=== PATIENT | male | born 1935 | race Caucasian/White ===

== ENCOUNTER 2016-09-23 13:59 | Emergency (ER) | payer MEDICARE, BC ==
[2016-09-23 14:24] VITALS: BP 118/69
--- NOTE | 2016-09-23 14:38 | ERNOTE ---
Chest Pain/Cardiac HPI Date of Service: 09/23/16 Chief Complaint: Chest Pain Time Seen by Provider: 09/23/16 14:24 Source: patient Exam Limitations: no limitations Immunizations: IMMUNIZATION HX Immunizations Up to Date Yes History of Influenza Vaccine Yes Hx Pneumococcal Vaccination Yes Allergies/Adverse Reactions: Allergies No Known Allergies Allergy (Verified 12/16/14 18:07) Home Medications: HOME MEDICATIONS Aspirin [Aspirin Enteric Coated] 81 mg PO DAILY 08/16/13 [Last Taken 12/16/14] Lisinopril [Prinivil] 20 mg PO DAILY 08/16/13 [Last Taken 12/16/14] Simvastatin 40 mg PO DAILY 08/16/13 [Last Taken 12/16/14] Tamsulosin HCl [Flomax] 0.4 mg PO DAILY 08/16/13 [Last Taken 12/16/14] Triamterene/Hydrochlorothiazid [Dyazide 37.5/25] 2 cap PO DAILY 08/16/13 [Last Taken 12/16/14] Ciprofloxacin HCl [Cipro] 500 mg PO BID 04/29/15 [Last Taken Unknown] Finasteride [Proscar] 5 mg PO DAILY 04/29/15 [Last Taken Unknown] Naproxen [Naprosyn] 1 tab PO BID PRN #30 tab 09/23/16 [Last Taken Unknown] Narrative: Presents with c/o left sided chest wall pain. Pt claims 2 days ago, while using a "Segment" exercise machine, one of its cables struck his left chest and left arm. He has had continuos pain since then, exacerbated by deep breaths, but is concerned about his heart. Has a h/o VT, CABG, and cardiac cath with stent placement. Denies any SOB, diaphoresis, or radiation of pain. Timing: constant Severity/Quality: moderate, aching Location: left chest Chest Pain Radiation: no radiation Activities at Onset: other - Exercise Modifying Factors - Improves: Present: other - Tylenol Modifying Factors - Worsens: Present: breathing Nitro Today/Relief: 0.4 mg x 1, provided at home, no relief Aspirin Treatment Today: 81 mg x 1, provided at home Associated Symptoms: Absent: headache, dizziness, syncope, cough, shortness of breath, diaphoresis, palpitations, heartburn, nausea, vomiting, abdominal pain, back pain, swelling/lump in chest Prior Chest Pain/Cardiac Workup: Reports: prior chest pain, angina, heart attack , cardiac cath Review of Systems - Review of Systems Constitutional: Present: no symptoms reported EYE: Present: no symptoms reported ENT: Present: no symptoms reported Respiratory: Present: no symptoms reported Cardiology: Present: See HPI Gastrointestinal/Abdominal: Present: no symptoms reported Genitourinary: Present: no symptoms reported Musculoskeletal: Present: See HPI Skin: Present: no symptoms reported Neurological: Present: no symptoms reported Endocrine: Present: no symptoms reported Hematologic/Lymphatic: Present: no symptoms reported Psych: Present: no symptoms reported All Other Systems: All systems neg except as marked - Patient's Past Medical History Patient History - Medical: Cataracts Patient History - Cardiac/Respiratory: Angina, Arrhythmias, Cardiomyopathy, Coronary Heart Disease, Hypertension, Hyperlipidemia, Myocardial Infarction Patient History - Cancer: Skin Patient History - Surgical Procedures: Coronary Bypass Surgery, Cardiac stent, Hernia Repair - Social History Living Situations: spouse Abuse History: No History of abuse Psych History: No pertinent hx Smoking Status: Former smoker Have you smoked in the past 12 months: No Do you dip or chew tobacco: No Alcohol Use: none Drug Use: none - Immunizations Immunizations Up to Date: Yes Hx Pneumococcal Vaccination: Yes History of Influenza Vaccine: Yes Physical Exam - Physical Exam General Appearance: Present: wd/wn, alert, no apparent distress Neck: Present: normal inspection, nontender Respiratory: Present: no respiratory distress, normal breath sounds, no accessory muscle use, lungs clear, chest tenderness - TTP ol lateral left chest , extending towards mid axillary region. Reproduces pain. Cardiovascular/Chest: Present: regular rate, rhythm, no murmur Gastrointestinal/Abdominal: Present: normal bowel sounds, nontender, nondistended, no organomegaly Back Exam: Present: normal inspection, normal range of motion Extremity Exam: Present: normal inspection Neurological Exam: Present: alert, oriented, normal mood/affect Skin Exam: Present: normal color, warm/dry ED Progress - Results and Orders Patient's Lab Results:: I have reviewed the patient's lab results. - Vital Signs Patient's Vital Signs:: I have reviewed the patient's vital signs. Vital Signs: Vital Signs 09/23/16 09/23/16 14:02 14:22 Temperature 36.7 C Pulse Rate 83 84 Respiratory 16 17 Rate Blood Pressure 125/68 118/69 O2 Sat by Pulse 96 97 Oximetry - EKG EKG: premature ventricular contraction - occasional EKG read: Interp. by me - Sinus rhythm @ 86 bpm - X-Ray X-Ray #1 X-Ray: chest Interpretation: Reviewed by me - Radiology report: No acute finding. - Progress/Reassessment Chief Complaint: Chest Pain Progress:: Pain free at discharge Departure - Departure Clinical Impression: Left-sided chest wall pain Disposition: Home self-care Condition: Good Instructions: Chest Wall Pain, [id number] Prescriptions: Naproxen [Naprosyn] 1 tab PO BID PRN #30 tab PRN Reason: Pain
[2016-09-23 14:40] LABS: Hematocrit 43.4 % (42.0-52.0); Hemoglobin 14.6 gm/dL (13.5-18.0); Mean Cell Volume 86.8 fl (78-100); Mean Corpuscular Hemoglobin 29.2 pg (27-31); Mean Corpuscular Hgb Conc 33.6 g/dl (32-36); Mean Platelet Volume 9.1 fl (6.0-9.5); Neutrophil # 7.8 K/mm3 (1.3-6.0); Neutrophil % 69.3 % (42-75.0); Platelet Count 264 K/mm3 (150-450); Red Cell Distribution Width 12.4 % (11.5-14.0); White Blood Count 11.2 K/mm3 (4.0-10.5)
[2016-09-23 15:02] LABS: Albumin * 3.5 gm/dl (3.4-5.0); Anion Gap 15.1 mmol/L (6.8-13.8); BUN/Creatinine Ratio 15.6 (9.0-21.6); Blood Urea Nitrogen 17 mg/dL (6-23); Carbon Dioxide 27.5 mmol/L (24-32.6); Chloride 100 mmol/L (97-106); Glucose * 108 mg/dL (70-110); Potassium 3.6 mmol/L (3.4-4.6); Sodium 139 mmol/L (132-142); Total Protein 7.2 gm/dL (6.2-8.2)
[2016-09-23 15:03] LABS: ALT 20 U/L (19-67); AST 14 U/L (0-48); Alkaline Phosphatase * 46 U/L (50-170); Bilirubin, Total 0.4 mg/dL (0.0-1.1); Ca. Corrected For Albumin 9.1 mg/dL (8.4-10.2)
[2016-09-23 15:04] LABS: Troponin I Less than 0.017 ng/ml (0.00-0.10)
[2016-09-23] MEDS ORDERED: KETOROLAC TROMETHAMINE 30 MG/ML VIAL IV ONE (15:16)
[2016-09-23] MEDS ORDERED: KETOROLAC TROMETHAMINE 30 MG/ML VIAL ONE (15:21)
--- OUTSIDE RECORDS SUMMARY | 2016-09-23 15:46 | XMS REPORT | Continuity of Care Document ---
:1935 Author Organization [facility] ([facility]) Address [address] [place] [address] Phone [phone] Care Team Providers Name Role Phone EarlMoo buchanan Primary Care Provider [phone] Source Comments This disclosure is being made pursuant to the Care Everywhere program, applicable federal and state laws, and may not contain all informaitonavailable regarding this patient.[facility] ([facility]) Active Allergies and Adverse Reactions No Known Allergies Current Medications Prescription Sig. Disp. Refills Start Date End Date Status aspirin 81 mg EC tablet Take 1 Tab (81 mg 30 Tab 11 11/22/2014 Active total) by mouth daily tamsulosin 0.4 mg capsule Take 1 Cap (0.4 mg 30 Cap 11 11/22/2014 Active total) by mouth daily simvastatin 40 mg tablet Take 1 Tab (40 mg 30 Tab 11 11/22/2014 Active total) by mouth every evening nitroglycerin 0.[address] 1 Tab (0.4 25 Tab 11 11/22/2014 Active tablet mg total) under the tongue every 5 minutes as needed FINASTERIDE 5 mg tablet 11/13/2014 Active lisinopril 10 mg tablet Take 10 mg by 11/18/2015 Active mouth daily. triamterene-hydrochloroth 11/18/2015 Active iazide 37.5-25 mg per capsule Active Problems Problem Noted Date Coronary artery disease involving coronary bypass graft of [place] heart 2014 without angina pectoris Overview: Formatting of this note may be different from the original. 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 SVG to DIAG patent. Distal LCX fills via collaterals from the distal RCA. Successfu l deployment of 3.0x16mm TAXUS stent to the proximal RCA.) - 04/07/2006 Cath (EF.55, Mild Basal-Inferior Hypo, Right Dominant, LMCA 90. 100% LAD, 100% LCX. RCA previously deployed stent x 2 to the RCA patent.50% distal RCA stenosis no change c/w cath 1995. MCCALLUM graft pa tent. SVG to OM patent. SVG to RCA occluded.) - 12/04/2002 Cath (EF.70, 100% Proximal LAD, 100% Proximal CX, 95% Mid RCA, 99% Distal RCA, Right Dominant, MCCALLUM LAD patent. SVG to DIAG patent.SVG to OM patent.SVG to RCA occluded.) - 10/30/1995 PCI (Stent: Distal RCA (3.0x15 Jose Martin), Stent: Mid RCA (3.5x15 J&J)) - 1995 ECHO/MUGA: Echo (Ejection Fraction=50%. There is moderate inferior wall hypokinesis. There is mild mitral regurgitation. Right ventricular systolic pressure is normal. There is aortic valve sclerosis without stenosis. ) - 09/02/2013 Echo (Ejection Fraction=50%. There is moderate inferior wall hypokinesis. There is mild mitral regurgitation. Right ventricular systolic pressure is normal. There is aortic valve sclerosis without stenosis. ) - 09/02/2013 STRESS TESTS: [facility] MPI (EF.37, Moderate Lateral / Inferior Ischemia) - 04/03/2006 MPI (Moderate Lateral Ischemia) - 11/29/2002 [facility] (Normal EF, Normal, Full Harris 6:00) - 09/05/2002 [facility] (Stress Echo [id number] No ischemia. See old record) [facility] MPI (EF 0.40 (40%), No ischemia) - 08/29/2000 [facility] MPI (EF 0.40 (40%), No ischemia) - 08/29/2013 [facility] MPI (EF 0.40 (40%), No ischemia) - 12/31/2010 [facility] MPI (EF 0.43 (43%), No ischemia) - 11/08/2012 VASCULAR: Carotid Duplex (Mild Disease in Bilateral ICAs, Vertebral: Bilateral Antegrade Flow) - 10/11/2006 Hypercholesterolemia without hypertriglyceridemia 05/13/2014 Benign essential HTN 09/02/2013 Hx of CABG Social History Tobacco Use Types Packs/Day Years Used Date Former Smoker Smokeless Tobacco: Never Used Alcohol Use Drinks/Week oz/Week Comments No Last Filed Vital Signs Vital Sign Reading Time Taken Blood Pressure 106/58 12/03/2015 1:40 PM CDT Pulse 84 12/03/2015 1:40 PM CDT Temperature - - Respiratory Rate - - Height 1.854 m (6' 0.99") 12/03/2015 1:40 PM CDT Weight 94.348 kg (208 lb) 12/03/2015 1:40 PM CDT Body Mass Index 27.45 12/03/2015 1:40 PM CDT Oxygen Saturation - - Plan of Care Date Type Specialty Providers Description 12/06/2016 Appointment Heart and Vascular Yanira Davey MD Chief Comp: Patient [address] [place] [address] Visit [phone] (Fax) Health Maintenance Due Date Last Done Comments Hepatitis B Vaccine (1 of 3 - Primary Series) 1935 Tdap Vaccine 01/26/1946 Lipid Disorder Screening 1953 Td Vaccine 1953 Colonoscopy 1987 Zoster Vaccine 1997 Pneumococcal Vaccine (1 of 2 - PCV13) 2002 Influenza Vaccine: Seasonal (#1) 02/08/2016 Results from Last 3 Months Not on file
--- OUTSIDE RECORDS SUMMARY | 2016-09-23 15:46 | XMS REPORT | CCD ---
:1935 Author Name ZECHARIAH HENDERSON Address [address] Unavailable [place], [place] [id number] Care Team Providers Name Role Phone LETHA MORGAN DO Attending Physician Unavailable Vital Signs Unknown or Not Available. Allergies Unknown or Not Available. Procedures Unknown or Not Available. History of Immunizations Unknown or Not Available. Problems Unknown or Not Available. Results PROSTATE-SPECIFIC AG - Collect Date/Time: 11/11/2014 11:01 Test Name Code Test Result Test Units Test Ref Range PSA TOTAL 4.110 ng/mL L=0.000 H=6.220 Active Medications Unknown or Not Available. Medications Administered During Visit Unknown or Not Available. Encounters Encounter Diagnosis Diagnosis Code Start Date ELEVATED PROSTATE SPECIFIC ANTIGEN 62234 11/11/2014 Social History Smoking Status Code Start Date End Date Former smoker [id number] Patient Decision Aids Unknown or Not Available. Discharge Instructions You were admitted to [facility] on 11/11/2014 with a principal diagnosis of ELEVATED PROSTATE SPECIFIC ANTIGEN. You were discharged from [facility] on 11/11/2014. Should you have any questions prior to discharge, please contact a member of your healthcare team. If you have left the hospital and have any questions, please contact your primary care physician. Chief Complaint and Reason For Visit Unknown or Not Available. Function Status Unknown or Not Available. Plan of Care Unknown or Not Available. Referral/Transition of Care Unknown or Not Available.
== END 2016-09-23 15:35 | disposition home or self-care (01) ==
LOC: ER 13:59
DX: R07.89 Other chest pain (principal); Z87.891 Personal history of nicotine dependence; Z95.5 Presence of coronary angioplasty implant and graft; I25.2 Old myocardial infarction; I10 Essential (primary) hypertension; E78.5 Hyperlipidemia, unspecified; I51.9 Heart disease, unspecified

== ENCOUNTER 2017-01-30 09:34 | Emergency (ER) | payer MEDICARE, BC ==
[2017-01-30] MEDS ORDERED: NITROGLYCERIN 0.4 MG/TAB BTL SL ONE (09:56)
[2017-01-30] MEDS ORDERED: ASPIRIN 81 MG TAB.CHEW PO ONE (09:56)
[2017-01-30] MEDS ORDERED: ONDANSETRON HCL/PF 2 MG/ML VIAL IV ONE (09:56)
[2017-01-30] MEDS ORDERED: ONDANSETRON HCL/PF 2 MG/ML VIAL ONE (09:57)
[2017-01-30] MEDS ORDERED: ASPIRIN 81 MG TAB.CHEW ONE (09:57)
--- NOTE | 2017-01-30 10:01 | ERNOTE ---
Chest Pain/Cardiac HPI Chief Complaint: Chest Pain Time Seen by Provider: 01/30/17 09:50 Source: patient Exam Limitations: no limitations Immunizations: IMMUNIZATION HX Immunizations Up to Date Yes History of Influenza Vaccine Yes Hx Pneumococcal Vaccination Yes Allergies/Adverse Reactions: Allergies No Known Allergies Allergy (Verified 01/30/17 09:44) Home Medications: HOME MEDICATIONS Aspirin [Aspirin Enteric Coated] 81 mg PO DAILY 08/16/13 [Last Taken 12/16/14] Lisinopril [Prinivil] 20 mg PO DAILY 08/16/13 [Last Taken 12/16/14] Simvastatin 40 mg PO DAILY 08/16/13 [Last Taken 12/16/14] Tamsulosin HCl [Flomax] 0.4 mg PO DAILY 08/16/13 [Last Taken 12/16/14] Triamterene/Hydrochlorothiazid [Dyazide 37.5/25] 2 cap PO DAILY 08/16/13 [Last Taken 12/16/14] Ciprofloxacin HCl [Cipro] 500 mg PO BID 04/29/15 [Last Taken Unknown] Finasteride [Proscar] 5 mg PO DAILY 04/29/15 [Last Taken Unknown] Naproxen [Naprosyn] 1 tab PO BID PRN #30 tab 09/23/16 [Last Taken Unknown] Narrative: Patient was sitting on the porch when he started to have epigastric pain and diaphoresis, no radiation, no other symptoms, rates the pain at 6/10. He has a remote history of CABG and stent placement, cannot remember what his symptoms were prior to surgery and stents Date (Duration): 01/30/17 Time (Timing): 09:00 Timing: constant Severity/Quality: other - fullness Location: epigastric Chest Pain Radiation: no radiation Activities at Onset: none Nitro Today/Relief: no nitro taken today Aspirin Treatment Today: 81 mg x 2 Associated Symptoms: Present: diaphoresis, nausea. Absent: headache, dizziness , shortness of breath, fever/chills, vomiting Prior Chest Pain/Cardiac Workup: Reports: prior chest pain Prior Treatment: Denies: recently seen, currently on antibiotics Review of Systems - Review of Systems Constitutional: Absent: recent illness, fever, chills EYE: Absent: vision changes ENT: Absent: nose congestion, sore throat Respiratory: Absent: shortness of breath Cardiology: Present: See HPI, chest pain Gastrointestinal/Abdominal: Present: nausea. Absent: vomiting, diarrhea Genitourinary: Present: no symptoms reported Musculoskeletal: Absent: back pain Skin: Absent: rash Neurological: Absent: headache - Patient's Past Medical History Patient History - Medical: Cataracts Patient History - Cardiac/Respiratory: Angina, Arrhythmias, Cardiomyopathy, Coronary Heart Disease, Hypertension, Hyperlipidemia, Myocardial Infarction Patient History - Cancer: Skin Patient History - Surgical Procedures: Coronary Bypass Surgery, Cardiac stent, Hernia Repair Patient History - Other: None - Social History Living Situations: home Abuse History: No History of abuse Psych History: No pertinent hx Smoking Status: Never smoker Alcohol Use: none Drug Use: none - Immunizations Immunizations Up to Date: Yes Hx Pneumococcal Vaccination: Yes History of Influenza Vaccine: Yes Physical Exam - Physical Exam General Appearance: Present: wd/wn, alert, no apparent distress Head Exam: Present: normal inspection Eye Exam: Normal inspection: bilateral, PERRL: bilateral Respiratory: Present: no respiratory distress, no accessory muscle use, lungs clear, decreased breath sounds Cardiovascular/Chest: Present: regular rate, rhythm, no murmur Gastrointestinal/Abdominal: Present: normal bowel sounds, nondistended, soft, tenderness - epigastric Extremity Exam: Present: no edema Neurological Exam: Present: alert, oriented, normal mood/affect Skin Exam: Present: normal color, warm/dry ED Progress - Results and Orders Patient's Lab Results:: I have reviewed the patient's lab results. - Vital Signs Patient's Vital Signs:: I have reviewed the patient's vital signs. Vital Signs: Vital Signs 01/30/17 01/30/17 09:39 09:45 Temperature 36 C L Pulse Rate 77 78 Respiratory 14 15 Rate Blood Pressure 144/66 O2 Sat by Pulse 94 94 Oximetry - EKG EKG: NSR, unchanged from - 09/2016, other - first degree AV block EKG read: Interp. by me - Progress/Reassessment Chief Complaint: Chest Pain Progress Note-Subjective: 01/30/17 10:57 patient became hypotensive with nitro, BP improved with fluids, patient feeling better discussed test results and limitation of test to rule out significant coronary stenosis, patient states now that he had fried eggs with cheese and toast with butter about 30 minutes prior to starting to have symptoms 01/30/17 11:40 pain resolved after GI cocktail, explained results Departure - Departure Clinical Impression: Chest pain Qualifiers: Chest pain type: unspecified Qualified Code(s): R07.9 - Chest pain, unspecified GERD (gastroesophageal reflux disease) Qualifiers: Esophagitis presence: esophagitis presence not specified Qualified Code(s): K21.9 - Gastro-esophageal reflux disease without esophagitis Disposition: Home self-care Condition: Good Instructions: Heartburn, [id number] Referrals: Moo Elliott MD [Primary Care Provider] -
[2017-01-30 10:05] LABS: Hematocrit 44.9 % (42.0-52.0); Hemoglobin 15.4 gm/dL (13.5-18.0); Mean Cell Volume 85.4 fl (78-100); Mean Corpuscular Hemoglobin 29.3 pg (27-31); Mean Corpuscular Hgb Conc 34.3 g/dl (32-36); Neutrophil # 7.1 K/mm3 (1.3-6.0); Neutrophil % 63.6 % (42-75.0); Platelet Count 280 K/mm3 (150-450); Red Blood Count 5.26 M/mm3 (4.7-6.0); Red Cell Distribution Width 12.3 % (11.5-14.0); White Blood Count 11.2 K/mm3 (4.0-10.5)
[2017-01-30] MEDS ORDERED: NORMAL SALINE 500 ML IV PRN ×2 (10:11→10:44)
[2017-01-30 10:15] LABS: Prothrombin Time (Patient) 10.7 Seconds (9.4-11.4)
[2017-01-30 10:17] LABS: INR 1.03 INR (0.90-1.10); Partial Thrombolplastin Time 25.6 Seconds (24-32)
[2017-01-30 10:21] LABS: ALT 19 U/L (19-67); AST 20 U/L (0-48); Albumin * 3.7 gm/dl (3.4-5.0); Alkaline Phosphatase * 45 U/L (50-170); Anion Gap 11.3 mmol/L (6.8-13.8); BUN/Creatinine Ratio 17.5 (9.0-21.6); Bilirubin, Total 1.3 mg/dL (0.0-1.1); Blood Urea Nitrogen 17 mg/dL (6-23); Ca. Corrected For Albumin 8.9 mg/dL (8.4-10.2); Carbon Dioxide 29.7 mmol/L (24-32.6); Chloride 99 mmol/L (97-106); Glucose * 124 mg/dL (70-110); Sodium 137 mmol/L (132-142); Total Protein 7.3 gm/dL (6.2-8.2)
[2017-01-30 10:22] LABS: Troponin I Less than 0.017 ng/ml (0.00-0.10)
[2017-01-30] MEDS ORDERED: SUCRALFATE 1 G/10 ML UDC PO ONE (10:56)
[2017-01-30] MEDS ORDERED: LIDOCAINE HCL 20 ML UDC PO ONE (10:56)
[2017-01-30] MEDS ORDERED: MAG HYDROX/ALUMINUM HYD/SIMETH 30 ML UDC PO ONE (10:56)
[2017-01-30 11:54] VITALS: BP 121/57
== END 2017-01-30 11:42 | disposition home or self-care (01) ==
LOC: ER 09:34
DX: R07.89 Other chest pain (principal); K21.9 Gastro-esophageal reflux disease without esophagitis; I44.0 Atrioventricular block, first degree; I95.9 Hypotension, unspecified
CPT/HCPCS: 36415; 71010; 71020; 80053; 84484; 85025; 85610; 85730; 93005; 96374; 99284; J2405

== ENCOUNTER 2017-02-21 09:41 | Day surgery (SDC) | payer MEDICARE, BC ==
[~2017-02-21 09:41] MED LIST: RINGER'S SOLUTION,LACTATED 1,000 ML IV PRN
[2017-02-21] MEDS ORDERED: RINGER'S SOLUTION,LACTATED 1,000 ML IV ONE ×2 (10:24→12:55)
[2017-02-21] MEDS ORDERED: BUPIVACAINE HCL/EPINEPHRINE 50 ML VIAL IJ ONE (11:50)
--- NOTE | 2017-02-21 12:44 | OR ---
Operative Report - Dictated Report Narrative: Date: 02/21/2017 Preoperative diagnosis: Symptomatic cholelithiasis Postoperative diagnosis: Same Procedure: Laparoscopic cholecystectomy Staff surgeon: Trent Malhotra MD Asst surgeon: César Higgins, M3 EBL: 20 mL Specimens: Gallbladder Complications: None apparent Indications: This gentleman has had numerous bouts of signs and symptoms consistent with symptomatic cholelithiasis and is been found to have cholelithiasis and sludge by ultrasound and presents now for definitive therapy. Description of procedure The patient was placed in the supine position and following the smooth induction of general endotracheal anesthesia the abdomen was prepped and draped in a sterile fashion all port sites were anesthetized with Marcaine prior to incision a small 5 mm infraumbilical incision was carried out and a perforating towel clip was placed through the umbilical raphae for countertraction. The abdomen was entered under direct vision with a 5 mm blunt port with the scope within the lumen of the trocar. The abdomen was then insufflated to a pressure of 15 mmHg with carbon dioxide. Under direct vision a superior midline 12 mm port and 2 right flank 5 mm ports were inserted. No significant adhesions to the gallbladder and the fundus was grasped and elevated towards the diaphragm. The infundibulum was grasped for countertraction. The cystic duct was then isolated with a critical view of safety as was the cystic artery and the cystic duct and artery were sequentially doubly clipped and divided and the gallbladder was taken out of the fossa with a combination of blunt dissection scissor dissection and electrocautery there is a small leakage of bile during this portion of the procedure the gallbladder was then placed into an Endo Catch bag once liberated and was delivered through the superior midline port. This port was returned to the abdominal cavity and pneumoperitoneum was reestablished. Inspection was carried out. There appeared to be no evidence of bile leak and hemostasis appeared to be adequate and the right upper quadrant was copiously copiously irrigated with 3 L of normal saline and the irrigant was evacuated. The remainder of the Marcaine was squirted in the peritoneal cavity. The superior midline fascial defect was closed with a Carson -Donald and heavy Vicryl suture. The pneumoperitoneum was evacuated. The ports were removed and incisions closed with 4-0 Vicryl subcuticular stitches and sealed with Dermabond. Patient tolerated procedure well without any apparent complications and was discharged from the operating room in stable condition. We have been able to find the radiologist's
[2017-02-21] MEDS ORDERED: ACETAMINOPHEN WITH CODEINE 1 EACH TABLET PO PRN (13:13)
[2017-02-21] MEDS ORDERED: MORPHINE SULFATE 2 MG/ML DISP.SYRIN IV PRN (13:38)
[2017-02-21] MEDS ORDERED: ONDANSETRON HCL/PF 2 MG/ML VIAL IV PRN (13:39)
[2017-02-21 14:34] VITALS: BP 150/66
== END 2017-02-21 09:42 | disposition home or self-care (01) ==
LOC: AMB 09:41
PROVIDERS: ATTEND Specialist
PROC: 0FT44ZZ Resection of Gallbladder, Percutaneous Endoscopic Approach (ICD-10-PCS; principal; 2017-02-21 10:50)
DX: K80.10 Calculus of gallbladder with chronic cholecystitis without obstruction (principal); I10 Essential (primary) hypertension; I25.10 Atherosclerotic heart disease of native coronary artery without angina pectoris; E78.00 Pure hypercholesterolemia, unspecified; Z87.891 Personal history of nicotine dependence; Z68.27 Body mass index [BMI] 27.0-27.9, adult
CPT/HCPCS: 47562; J2405